=== PATIENT | female | born 1990 | race Two or more races ===

== ENCOUNTER → 2018-06-28 | Emergency (ER) | payer OTHER | END | disposition left against medical advice (07) | LOC: ER 10:29 | DX: Z53.21 Procedure and treatment not carried out due to patient leaving prior to being seen by health care provider (principal) ==

== ENCOUNTER 2019-08-14 13:30 | Outpatient (CLI) | payer OTHER | END 2019-08-14 13:34 | disposition home or self-care (01) | LOC: LAB 13:30 | DX: N39.0 Urinary tract infection, site not specified (principal) ==